=== PATIENT | female | born 1985 | race Caucasian/White ===

== ENCOUNTER 2020-11-10 18:27 | Emergency (ER) | payer OTHER, SELFPAY ==
[2020-11-10] MEDS ORDERED: Ketorolac Tromethamine 30 MG/ML VIAL ONE (19:24)
[2020-11-10] MEDS ORDERED: Ondansetron ODT 4 MG TAB ONE (19:24)
[2020-11-11 18:10] LABS: SARS-CoV-2 PCR by NAA Not Detected (NotDetected)
== END 2020-11-10 19:41 | disposition home or self-care (01) ==
LOC: MADERS 18:27
DX: B34.9 Viral infection, unspecified (principal); Z20.822 Contact with and (suspected) exposure to COVID-19; F17.210 Nicotine dependence, cigarettes, uncomplicated; J45.909 Unspecified asthma, uncomplicated
CPT/HCPCS: 87635; 99284; J1885; Q0162; U0003; U0005

== ENCOUNTER 2022-10-29 23:47 | Emergency (ER) | payer OTHER, SELFPAY ==
[2022-10-30] MEDS ORDERED: Lidocaine 1% PF 5 ML VIAL ONE (00:20)
[2022-10-30] MEDS ORDERED: Boostrix 0.5 ML (Tdap) VIAL (>/=7 yrs of age) ONE (00:40)
[2022-10-30] MEDS ORDERED: Ibuprofen 600 MG TAB ONE (00:57)
== END 2022-10-30 00:35 | disposition home or self-care (01) ==
LOC: MADERS 23:47
DX: S61.210A Laceration without foreign body of right index finger without damage to nail, initial encounter (principal); F17.210 Nicotine dependence, cigarettes, uncomplicated; Z23 Encounter for immunization; W26.0XXA Contact with knife, initial encounter
CPT/HCPCS: 90471; 90715

== ENCOUNTER 2024-07-24 12:26 | Emergency (ER) | payer OTHER ==
[2024-07-24] MEDS ORDERED: Bacitracin 1 PK ONE (13:15)
== END 2024-07-24 13:30 | disposition home or self-care (01) ==
LOC: MADERS 12:26
DX: S01.85XA Open bite of other part of head, initial encounter (principal); F17.210 Nicotine dependence, cigarettes, uncomplicated; W54.0XXA Bitten by dog, initial encounter
CPT/HCPCS: 90471